=== PATIENT | male | born 1995 | race Two or more races ===

== ENCOUNTER 2018-04-24 05:42 | Emergency (ER) | payer SELFPAY ==
[2018-04-24] MEDS ORDERED: Albuterol/Ipratropium 3.0-0.5 MG/3 ML Neb Soln NEB ONE (05:54)
[2018-04-24] MEDS ORDERED: predniSONE 20 MG Tab PO ONE (05:54)
--- NOTE | 2018-04-24 06:00 | EDM.PDOC ---
ED HPI GENERAL MEDICAL PROBLEM - General Chief Complaint: Respiratory Problem Stated Complaint: SOB Time Seen by Provider: 04/24/18 05:51 - History of Present Illness INITIAL COMMENTS - FREE TEXT/NARRATIVE: 23-year-old male presents emergency room with worsening asthma. Patient ran out of his albuterol. The patient is traveling here on business and his albuterol ran out it sounds like he uses albuterol 4-5 times daily. 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 The patient does have lifelong asthma. He denies any fevers or chills he has an occasional cough that is nonproductive. - Related Data Allergies Allergy/AdvReac Type Severity Reaction Status Date / Time No Known Allergies Allergy Verified 04/24/18 05:49 Home Meds: Home Meds Albuterol [Ventolin HFA] 2 puff INH Q6H PRN #1 puff 04/24/18 [Rx] Fluticasone Propionate [Flovent HFA 110 MCG] 1 puff INH BID #1 puff 04/24/18 [Rx ] predniSONE 10 mg PO .TAPER #26 tab 04/24/18 [Rx] ED ROS GENERAL - Review of Systems Review Of Systems: See Below Constitutional: Reports: No Symptoms HEENT: Reports: No Symptoms Respiratory: Reports: Shortness of Breath, Wheezing, Cough. Denies: Pleuritic Chest Pain, Sputum Cardiovascular: Reports: No Symptoms GI/Abdominal: Reports: No Symptoms Neurological: Reports: No Symptoms ED EXAM, GENERAL - Physical Exam Exam: See Below Exam Limited By: No Limitations General Appearance: Alert, No Apparent Distress Ears: Normal External Exam, Normal Canal, Hearing Grossly Normal, Normal TMs Nose: Normal Inspection, Normal Mucosa, No Blood Throat/Mouth: Normal Inspection, Normal Lips, Normal Teeth, Normal Gums, Normal Oropharynx, Normal Voice, No Airway Compromise Head: Atraumatic, Normocephalic Neck: Normal Inspection, Supple, Non-Tender, Full Range of Motion Respiratory/Chest: No Respiratory Distress, Decreased Breath Sounds, Wheezing, Prolonged Expiration Cardiovascular: Regular Rate, Rhythm, No Edema, No Murmur Course - Vital Signs Last Recorded V/S: Last Vital Signs Temp 36.9 C 04/24/18 05:47 Pulse 77 04/24/18 05:47 Resp 22 H 04/24/18 05:47 BP 118/89 04/24/18 05:47 Pulse Ox 96 04/24/18 06:14 - Orders/Labs/Meds Orders: Active Orders 24 hr Category Date Time Status RT Aerosol Therapy [RC] ASDIRECTED Care 04/24/18 05:54 Active Meds: Medications Discontinued Medications Generic Name Dose Route Start Last Admin Trade Name Freq PRN Reason Stop Dose Admin Albuterol/Ipratropium 3 ml 04/24/18 05:54 04/24/18 06:13 Duoneb 3.0-0.5 Mg/3 Ml NEB 04/24/18 05:55 3 ml ONETIME ONE Administration Prednisone 60 mg 04/24/18 05:54 Prednisone PO 04/24/18 05:55 ONETIME ONE - Re-Assessments/Exams Free Text/Narrative Re-Assessment/Exam: 04/24/18 06:29 Patient doing much better after his nebulizer treatment. We'll discharge with prednisone taper and a prescription for albuterol and Flovent. Departure - Departure Time of Disposition: 06:29 Disposition: Home, Self-Care 01 Clinical Impression: Asthma exacerbation - Discharge Information Prescriptions: Albuterol [Ventolin HFA] 2 puff INH Q6H PRN #1 puff PRN Reason: Shortness Of Breath Fluticasone Propionate [Flovent HFA 110 MCG] 1 puff INH BID #1 puff predniSONE 10 mg PO .TAPER #26 tab Referrals: PCP,None [Primary Care Provider] - Forms: ED Department Discharge Additional Instructions: Return to the emergency room with any questions problems worsening symptoms. Follow-up at the Hospital clinic early this next week [id number]. Use your inhalers as directed and take the prednisone as directed. - My Orders Last 24 Hours: My Active Orders 04/24/18 05:54 RT Aerosol Therapy [RC] ASDIRECTED - Assessment/Plan Last 24 Hours: My Active Orders 04/24/18 05:54 RT Aerosol Therapy [RC] ASDIRECTED
[2018-04-24] MEDS ORDERED: Albuterol 6.7 GM Inhaler INH ONE ×2 (06:28→06:32)
== END 2018-04-24 06:39 | disposition home or self-care (01) ==
LOC: JD.ED 05:42
DX: J45.901 Unspecified asthma with (acute) exacerbation (principal)
CPT/HCPCS: 94640; 99285; A9270; 99283; J7620-GY